=== PATIENT | female | born 1965 | race Hispanic/Latino ===

== ENCOUNTER 2022-11-22 00:46 | Emergency (ER) | payer OTHER ==
[~2022-11-22] VITALS: Ht 154.9 cm; Wt 87.8 kg
[~2022-11-22 00:46] MED LIST: EMPA1TAB19 PO; LEVO-70 PO; LISI2.5T13 PO; MOUNJARO
[2022-11-22] MEDS ORDERED: MAG/ALUM/SIMETH 30 ML UDCUP PO ONE (02:30)
[2022-11-22] MEDS ORDERED: GLUCAGON 1MG KIT 1 MG ML IM SCH (02:30)
[2022-11-22] MEDS ORDERED: LIDOCAINE HCL 2% VISCOUS 15 ML UDCUP PO ONE (02:30)
[2022-11-22 03:40] VITALS: BP 116/64; PULSE 76; RESP 18; O2SAT 98
[2022-11-22] MEDS ORDERED: SUCR1TAB28 PO (03:47)
[2022-11-22] MEDS ORDERED: PANT40TA55 PO (03:47)
== END 2022-11-22 03:59 | disposition home or self-care (01) ==
LOC: EDH 00:46
DX: K20.80 Other esophagitis without bleeding (principal); E11.9 Type 2 diabetes mellitus without complications; E78.00 Pure hypercholesterolemia, unspecified
CPT/HCPCS: 99283; 71046; 96372; J1610